=== PATIENT | male | born 1940 | race Caucasian/White ===

== ENCOUNTER 2020-09-11 01:51 | Outpatient (CLI) | payer OTHER, SELFPAY ==
[2020-09-11 10:27] LABS: Abs Immature Grans 0.02 10^3/uL (0.0-0.06); Absolute Basophil Count 0.04 10^3/uL (0.0-0.2); Absolute Eosinophil Count 0.63 10^3/uL (0.0-0.7); Absolute Lymphocyte Count 3.37 10^3/uL (1.2-3.4); Absolute Monocyte Count 0.72 10^3/uL (0.1-0.8); Absolute Neutrophil Count 3.32 10^3/uL (1.2-6.7); Basophils % 0.5; Eosinophils % 7.8; HCT 41.5 % (40.0-50.0); HGB 14.2 g/dL (13.5-17.5); Immature Grans % 0.2; Lymphocytes % 41.6; MCH 31.7 pg (27.0-33.0); MCHC 34.2 % (32.0-36.0); MCV 92.6 fL (80-95); MPV 9.4 fL (8.0-11.0); Monocytes % 8.9; Nucleated RBC 0 %; Platelet Count 386 10^3/uL (130-400); RBC 4.48 10^6/uL (4.36-5.78); RDW 14.2 % (11.8-14.1); RDW-SD 48.3 fL
[2020-09-11 11:22] LABS: ALT 343 U/L (16-63); AST 154 U/L (15-37); Albumin 3.8 g/dL (3.4-5.0); Alkaline Phosphatase 131 U/L (46-116); Anion Gap 7.4 mmol/L (3-11); BUN 13 mg/dL (7-18); Bilirubin, Total 0.5 mg/dL (0.2-1.0); CO2 28.6 mmol/L (21.0-32.0); CREATININE 0.93 mg/dL (0.70-1.30); Calcium 9.1 mg/dL (8.5-10.1); Chloride 104 mmol/L (98-107); Glucose 89 mg/dL (74-106); Potassium 4.2 mmol/L (3.5-5.1); Sodium 140 mmol/L (136-145); Total Protein 7.5 g/dL (6.4-8.2)
== END 2020-09-11 02:11 ==
PROVIDERS: PCP Legal Medicine; Visit Provider Internal Medicine
DX: C61 Malignant neoplasm of prostate (principal)
CPT/HCPCS: 36415; 80053; 85025

== ENCOUNTER 2020-09-25 03:48 | Outpatient (CLI) | payer OTHER, SELFPAY ==
[2020-09-25 14:13] LABS: Abs Immature Grans 0.02 10^3/uL (0.0-0.06); Absolute Basophil Count 0.03 10^3/uL (0.0-0.2); Absolute Eosinophil Count 0.37 10^3/uL (0.0-0.7); Absolute Lymphocyte Count 3.51 10^3/uL (1.2-3.4); Absolute Monocyte Count 0.82 10^3/uL (0.1-0.8); Basophils % 0.3; Eosinophils % 4.1; HCT 39.6 % (40.0-50.0); HGB 13.6 g/dL (13.5-17.5); Immature Grans % 0.2; Lymphocytes % 38.8; MCH 32.1 pg (27.0-33.0); MCHC 34.3 % (32.0-36.0); MCV 93.4 fL (80-95); MPV 9.1 fL (8.0-11.0); Monocytes % 9.1; Neutrophils % 47.5; Nucleated RBC 0 %; Platelet Count 335 10^3/uL (130-400); RBC 4.24 10^6/uL (4.36-5.78); RDW 13.9 % (11.8-14.1); RDW-SD 47.8 fL; WBC 9.05 10^3/uL (4.4-10.8)
[2020-09-25 14:29] LABS: ALT 80 U/L (16-63); AST 45 U/L (15-37); Albumin 3.5 g/dL (3.4-5.0); Alkaline Phosphatase 112 U/L (46-116); Anion Gap 5.8 mmol/L (3-11); BUN 17 mg/dL (7-18); Bilirubin, Direct 0.12 mg/dL (0.00-0.20); Bilirubin, Total 0.5 mg/dL (0.2-1.0); CO2 28.2 mmol/L (21.0-32.0); CREATININE 1.02 mg/dL (0.70-1.30); Calcium 8.9 mg/dL (8.5-10.1); Chloride 102 mmol/L (98-107); Glucose 103 mg/dL (74-106); Potassium 3.7 mmol/L (3.5-5.1); Sodium 136 mmol/L (136-145); Total Protein 7.3 g/dL (6.4-8.2)
== END 2020-09-25 04:08 ==
PROVIDERS: PCP Legal Medicine; Visit Provider Internal Medicine
DX: C61 Malignant neoplasm of prostate (principal)
CPT/HCPCS: 36415; 80053; 80076; 85025

== ENCOUNTER 2020-10-23 10:26 | Outpatient (RCR) | payer OTHER, SELFPAY ==
[2020-10-23 11:12] LABS: ALT 31 U/L (16-63); AST 30 U/L (15-37); Albumin 4.2 g/dL (3.4-5.0); Alkaline Phosphatase 130 U/L (46-116); Anion Gap 8.2 mmol/L (3-11); BUN 19 mg/dL (7-18); Bilirubin, Total 0.4 mg/dL (0.2-1.0); CO2 28.8 mmol/L (21.0-32.0); CREATININE 1.09 mg/dL (0.70-1.30); Calcium 9.5 mg/dL (8.5-10.1); Chloride 102 mmol/L (98-107); Glucose 96 mg/dL (74-106); Potassium 3.8 mmol/L (3.5-5.1); Sodium 139 mmol/L (136-145); Total Protein 8.4 g/dL (6.4-8.2)
[2020-10-24 12:10] LABS: PSA, Ultrasensitive 2.5 ng/mL (<= 6.5)
[2020-10-27 11:04] LABS: Testosterone, Total 20 ng/dL (240-950)
== END 2020-10-25 23:59 | disposition home or self-care (01) ==
LOC: INF 10:26
PROVIDERS: PCP Legal Medicine; Visit Provider Internal Medicine
DX: C61 Malignant neoplasm of prostate (principal); C79.89 Secondary malignant neoplasm of other specified sites
CPT/HCPCS: 36415; 80053; 84153; 84403

== ENCOUNTER 2020-12-04 02:34 | Outpatient (CLI) | payer OTHER, SELFPAY ==
[2020-12-04 09:16] LABS: Abs Immature Grans 0.02 10^3/uL (0.0-0.06); Absolute Basophil Count 0.05 10^3/uL (0.0-0.2); Absolute Eosinophil Count 0.34 10^3/uL (0.0-0.7); Absolute Lymphocyte Count 3.67 10^3/uL (1.2-3.4); Absolute Monocyte Count 0.76 10^3/uL (0.1-0.8); Absolute Neutrophil Count 2.89 10^3/uL (1.2-6.7); Basophils % 0.6; Eosinophils % 4.4; HGB 14.9 g/dL (13.5-17.5); Immature Grans % 0.3; Lymphocytes % 47.5; MCH 31.2 pg (27.0-33.0); MCHC 33.9 % (32.0-36.0); MCV 92.2 fL (80-95); MPV 9.2 fL (8.0-11.0); Monocytes % 9.8; Neutrophils % 37.4; Nucleated RBC 0 %; Platelet Count 341 10^3/uL (130-400); RBC 4.77 10^6/uL (4.36-5.78); RDW 12.6 % (11.8-14.1); RDW-SD 43.1 fL; WBC 7.73 10^3/uL (4.4-10.8)
[2020-12-04 09:29] LABS: ALT 25 U/L (16-63); AST 27 U/L (15-37); Albumin 3.7 g/dL (3.4-5.0); Alkaline Phosphatase 118 U/L (46-116); BUN 17 mg/dL (7-18); Bilirubin, Total 0.4 mg/dL (0.2-1.0); CREATININE 0.9 mg/dL (0.70-1.30); Calcium 9.2 mg/dL (8.5-10.1); Chloride 103 mmol/L (98-107); Glucose 96 mg/dL (74-106); Potassium 4.2 mmol/L (3.5-5.1); Sodium 137 mmol/L (136-145); Total Protein 7.8 g/dL (6.4-8.2)
[2020-12-05 15:12] LABS: PSA, Ultrasensitive 3.5 ng/mL (<= 6.5)
[2020-12-07 16:25] LABS: Testosterone, Total 10 ng/dL (240-950)
== END 2020-12-04 02:35 | disposition home or self-care (01) ==
LOC: LBO 02:34
PROVIDERS: PCP Legal Medicine; Visit Provider Internal Medicine
DX: C61 Malignant neoplasm of prostate (principal)
CPT/HCPCS: 36415; 80053; 84153; 84403; 85025

== ENCOUNTER 2021-03-05 03:36 | Outpatient (CLI) | payer OTHER, SELFPAY ==
[2021-03-05 09:07] LABS: Abs Immature Grans 0.01 10^3/uL (0.0-0.06); Absolute Basophil Count 0.07 10^3/uL (0.0-0.2); Absolute Eosinophil Count 0.33 10^3/uL (0.0-0.7); Absolute Lymphocyte Count 3.37 10^3/uL (1.2-3.4); Absolute Monocyte Count 0.67 10^3/uL (0.1-0.8); Absolute Neutrophil Count 3.24 10^3/uL (1.2-6.7); Basophils % 0.9; Eosinophils % 4.3; HCT 43.6 % (40.0-50.0); HGB 14.4 g/dL (13.5-17.5); Immature Grans % 0.1; Lymphocytes % 43.8; MCH 30.8 pg (27.0-33.0); MCV 93.4 fL (80-95); MPV 9.3 fL (8.0-11.0); Monocytes % 8.7; Neutrophils % 42.2; Nucleated RBC 0 %; Platelet Count 338 10^3/uL (130-400); RBC 4.67 10^6/uL (4.36-5.78); RDW 13.3 % (11.8-14.1); RDW-SD 45.6 fL; WBC 7.69 10^3/uL (4.4-10.8)
[2021-03-05 09:19] LABS: ALT 24 U/L (16-63); AST 26 U/L (15-37); Albumin 3.9 g/dL (3.4-5.0); Alkaline Phosphatase 108 U/L (46-116); Anion Gap 6.9 mmol/L (3-11); BUN 13 mg/dL (7-18); Bilirubin, Total 0.4 mg/dL (0.2-1.0); CO2 31.1 mmol/L (21.0-32.0); CREATININE 1.1 mg/dL (0.70-1.30); Calcium 9.5 mg/dL (8.5-10.1); Chloride 105 mmol/L (98-107); Glucose 88 mg/dL (74-106); Potassium 4.7 mmol/L (3.5-5.1); Sodium 143 mmol/L (136-145); Total Protein 7.8 g/dL (6.4-8.2)
[2021-03-06 13:26] LABS: PSA, Ultrasensitive 2.8 ng/mL (<= 6.5)
[2021-03-07 17:28] LABS: Testosterone, Total 16 ng/dL (240-950)
== END 2021-03-05 03:37 | disposition home or self-care (01) ==
LOC: LBO 03:36
PROVIDERS: PCP Legal Medicine; Visit Provider Internal Medicine
DX: C61 Malignant neoplasm of prostate (principal)
CPT/HCPCS: 36415; 80053; 84153; 84403; 85025